=== PATIENT | female | born 1975 | race Caucasian/White ===

== ENCOUNTER 2024-03-26 15:00 | Emergency (ER) | payer SELFPAY ==
[~2024-03-26] VITALS: Ht 172.7 cm; Wt 65.9 kg
[2024-03-26 15:34] LABS: BASO # 0.03 K/mm3 (0.02-0.10); EOS # 0.13 K/mm3 (0.04-0.40); EOS % 1.7 % (1.0-5.0); HEMATOCRIT 39.3 % (37.0-47.0); HEMOGLOBIN 12.9 g/dL (12.5-16.0); LYMPH# 1.26 K/mm3 (1.50-4.00); MEAN CELL VOLUME 88 fl (78-100); MEAN CORPUSCULAR HEMOGLOBIN 29 pg (27-31); MEAN CORPUSCULAR HGB CONC 33 g/dL (33-37); MEAN PLATELET VOLUME 9.5 fl (7.4-10.4); MONO # 0.58 K/mm3 (0.20-0.80); NEU # 5.57 K/mm3 (1.40-6.50); PLATELET COUNT 257 K/mm3 (130-400); RED BLOOD COUNT 4.48 M/mm3 (4.10-5.30); RED CELL DISTRIBUTION WIDTH 14.2 % (11.5-14.5); WHITE BLOOD COUNT 7.6 K/mm3 (4.8-10.8)
[2024-03-26 15:48] LABS: ALBUMIN 4.2 g/dL (3.5-5.0)
[2024-03-26 15:49] LABS: CALCIUM 8.8 mg/dL (8.3-10.5)
[2024-03-26 15:50] LABS: TOTAL PROTEIN 6.4 g/dL (6.4-8.3)
[2024-03-26 15:50] LABS: URINE WBC 0 /hpf (0-3)
[2024-03-26 15:52] LABS: TOTAL BILIRUBIN 0.2 mg/dL (0.2-1.2)
[2024-03-26 16:05] LABS: D-DIMER 0.16 mg/L FEU (0.15-0.50)
[2024-03-26 16:09] LABS: URINE APPEARANCE CLEAR (CLEAR); URINE BILIRUBIN NEGATIVE (NEGATIVE); URINE BLOOD NEGATIVE (NEGATIVE); URINE COLOR YELLOW (YELLOW); URINE GLUCOSE NEGATIVE (NEGATIVE); URINE KETONE NEGATIVE (NEGATIVE); URINE LEUKOCYTE ESTERASE NEGATIVE (NEGATIVE); URINE NITRATE NEGATIVE (NEGATIVE); URINE PROTEIN(semi-quant) NEGATIVE (NEGATIVE)
[2024-03-26 16:51] VITALS: BP 124/79
== END 2024-03-26 16:51 | disposition home or self-care (01) ==
LOC: ED 15:00
PROVIDERS: Physician Assistant
DX: N83.202 Unspecified ovarian cyst, left side (principal)